=== PATIENT | female | born 1940 | race Caucasian/White ===

== ENCOUNTER → 2016-03-12 | Outpatient (CLI) | payer OTHER ==
[~2016-03-12] MED LIST: ALLO100T PO; ASCA500 PO; ASPI81TA28 PO; CEPH500C PO; CHOL1000 PO; DTRSR/2 PO; GLC/500 PO; HYDR25TA4 PO; OMEG10007 PO; SIMV40TA2 PO
[2016-03-12 12:55] LABS: ALT/SGPT 28 U/L (12-78); AST/SGOT 28 U/L (15-37); BLOOD UREA NITROGEN 17 mg/dl (7-18); BUN/CREATININE RATIO 18.2 (10-20); CALCIUM 9.1 mg/dl (8.5-10.1); CARBON DIOXIDE 29 mmol/L (21-32); CHLORIDE 104 mmol/L (98-107); CREATININE 0.95 mg/dl (0.60-1.20); GLUCOSE 112 mg/dl (70-99); POTASSIUM 3.9 mmol/L (3.5-5.1); SODIUM 142 mmol/L (136-145)
[2016-03-12 12:58] LABS: ALB/GLOB RATIO 1.4 (0.9-2); ALKALINE PHOSPHATASE 57 U/L (45-117)
[2016-03-12 13:00] LABS: CHOLESTEROL/HDL RATIO 3.9; THYROID STIMULATING HORMONE 0.451 uIu/ml (0.300-4.500)
[2016-03-12 13:08] LABS: ESTIMATED AVERAGE GLUCOSE 117 mg/dl; HA1C FLAG Normal (Normal)
== END | disposition home or self-care (01) ==
LOC: C.LABPVFM 03-11 11:04
PROVIDERS: ATTEND Family Medicine
DX: Z00.00 Encounter for general adult medical examination without abnormal findings (principal); E11.9 Type 2 diabetes mellitus without complications; I10 Essential (primary) hypertension; E78.5 Hyperlipidemia, unspecified

== ENCOUNTER → 2016-04-30 | Outpatient (CLI) | payer OTHER | END | disposition home or self-care (01) | LOC: C.LABPVFM 14:10 | PROVIDERS: ATTEND Family Medicine | DX: N39.46 Mixed incontinence (principal); R50.9 Fever, unspecified ==

== ENCOUNTER 2016-05-04 14:14 | Emergency (ER) | payer OTHER ==
[2016-05-04 14:17] VITALS: Ht 151.1 cm
[2016-05-04] MEDS ORDERED: ASPI81TA28 PO (15:05)
[2016-05-04] MEDS ORDERED: DTRSR/2 PO (15:05)
[2016-05-04] MEDS ORDERED: HYDR25TA4 PO (15:05)
[2016-05-04] MEDS ORDERED: OMEG10007 PO (15:05)
[2016-05-04] MEDS ORDERED: SIMV40TA2 PO (15:05)
[2016-05-04] MEDS ORDERED: ALLO100T PO (15:05)
[2016-05-04] MEDS ORDERED: GLC/500 PO ×2 (15:05)
[2016-05-04] MEDS ORDERED: ASCA500 PO (15:05)
[2016-05-04] MEDS ORDERED: CHOL1000 PO (15:05)
[2016-05-04 15:20] VITALS: O2SAT 97
[2016-05-04 15:24] LABS: BASO % 0.4 %; BASO ABS # 0.03 K/uL (0-0.2); EOS % 1.2 %; HEMATOCRIT 33.6 % (37-47); IG% 0.4 %; LYMPH % 22.1 %; LYMPH ABS # 1.88 K/uL (1.2-3.4); MEAN CELL VOLUME 113.9 fL (80-100); MEAN CORPUSCULAR HEMOGLOBIN 40.7 pg (25-34); MEAN CORPUSCULAR HGB CONC 35.7 g/dl (32-36); MEAN PLATELET VOLUME 9.8 fL (7.4-10.4); MONO % 6.2 %; NEUT % 69.7 %; PLATELET COUNT 209 K/uL (130-400); RED BLOOD COUNT 2.95 M/uL (4.2-5.4); WHITE BLOOD COUNT 8.52 K/uL (4.8-10.8)
--- NOTE | 2016-05-04 15:32 | EMERGENCY ROOM VISIT NOTE ---
History First contact with patient: 14:25 Chief Complaint: DIZZY Stated Complaint: DIZZY/FALLS Nursing Triage Summary: Pt states she felt very dizzy this morning, "now I don't feel real stable. UA at Dr, "no infection but it was contaminated". Pt has has had two fall recently. Last one Tuesday night she got up to go to bathroom and lost her balance and fell into a chair. Pt c/o left shoulder pain from fall. Bruising. History of Present Illness The patient is a 76 year old female who presents to the Emergency Room with complaints of an episode of dizziness which occurred this morning. The patient reports that she has had a few falls recently. She reports that 5 days ago, she lost her balance and fell into a chair. The next day, she again lost her balance and fell while going to the bathroom. She does report some bruising in the left ribs secondary to the first fall. Her reports that he feels she is "out of it." He reports that she has been slightly confused at times. The patient was seen by her primary care provider 4 days ago due to these symptoms. They performed a urinalysis and culture and she was told that this was negative. The patient states that she felt okay over the past 3 days, but this morning she had an episode of dizziness. She reports that she was standing in the kitchen cooking when she developed a sensation of the room spinning. Her symptoms lasted approximately 10-15 minutes, and resolved when she sat down and rested. Patient states that she feels much better now, but is afraid that she will be dizzy again. She has a history of diabetes and states that her blood sugar has been well controlled. She denies any associated chest pain, shortness of breath, neck pain, headaches, recent illness, fevers/chills, nausea or vomiting. She denies any numbness or weakness of her extremities, facial drooping, blurred vision or slurred speech. The patient denies any previous episodes of dizziness. Review of Systems A complete 10-point Review of Systems was discussed with the patient, with pertinent positives and negatives listed in the History of Present Illness. All remaining Review of Systems questions can be considered negative unless otherwise specified. Social History Smoking Status: Never Smoker Current/Historical Medications Scheduled Allopurinol (Zyloprim), 100 MG PO QAM Ascorbic Acid (Vitamin C), 500 MG PO DAILY Aspirin (Aspirin Ec), 81 MG PO DAILY Cephalexin Monohydrate (Keflex), 500 MG PO BID Cholecalciferol (Vitamin D3), 1,000 TAB PO DAILY Fish Oil ([place]-3), 1 CAP PO DAILY Hydrochlorothiazide (Hctz), 25 MG PO QAM Metformin Hcl (Glucophage), 1,000 MG PO QAM Metformin Hcl (Glucophage), 500 MG PO QPM Simvastatin (Zocor), 40 MG PO QPM Tolterodine Tartrate (Detrol LA), 2 MG PO QAM Allergies Coded Allergies: No Known Allergies (Unverified , 05/04/16) Physical Exam Vital Signs Date Time Temp Pulse Resp B/P Pulse Ox O2 Delivery O2 Flow Rate FiO2 05/04/16 17:16 36.6 69 18 148/57 97 05/04/16 17:15 69 18 148/57 97 Room Air 05/04/16 15:23 64 155/59 66 143/72 70 151/76 05/04/16 15:20 65 20 155/59 05/04/16 15:20 97 Room Air 05/04/16 14:17 36.6 93 17 133/62 96 Room Air Physical Exam VITALS: Vitals are noted on the nurse's note and reviewed by myself. Vital signs stable. GENERAL: This is a 76-year-old female, in no acute distress, nondiaphoretic, well-developed well-nourished. SKIN: The skin was without rashes. Capillary reflex less than 2 seconds. There is mild ecchymosis of the left lateral fifth and sixth ribs. HEAD: Normocephalic atraumatic. EARS: External auditory canals clear, tympanic membranes pearly isbell without erythema or effusion bilaterally. EYES: Pupils equal round and reactive to light and accommodation. Conjunctivae without injection, sclerae without icterus. Extraocular movements intact. NOSE: Patent, turbinates without inflammation or discharge. MOUTH: Mucous membranes moist. Tonsils are not enlarged. Pharynx without erythema or exudate. Tongue does not deviate. NECK: Supple without nuchal rigidity. No lymphadenopathy. Cervical spine is nontender. HEART: Regular rate and rhythm without murmurs gallops or rubs. LUNGS: Clear to auscultation bilaterally without wheezes, rales or rhonchi. No retractions or accessory muscle use. ABDOMEN: Positive bowel sounds x 4. Soft, nontender. MUSCULOSKELETAL: There is tenderness to palpation of the left lateral and anterior fifth and sixth ribs. Full range of motion in all extremities. Strength 5/5 throughout. NEURO: Patient was alert and oriented to person place and time. Normal sensation to light and sharp touch. Deep tendon reflexes 2+ throughout. No focal neurological deficits. Normal Mini-Mental status exam. Normal gait. Normal finger to nose testing. Normal rapid alternating movements. Negative Romberg and pronator drift. Medical Decision & Procedures ER Provider Diagnostic Interpretation: CT SCAN OF THE BRAIN WITHOUT IV CONTRAST IMPRESSION: There is no hemorrhage, mass effect, or evidence of acute territorial ischemia by CT criteria. AP CHEST WITH LEFT-SIDED RIB SERIES IMPRESSION: 1. Cardiac enlargement with no acute cardiopulmonary abnormality. 2. Suspected an acute nondistracted left anterior sixth rib fracture. Correlate for point tenderness at this site. Laboratory Results 05/04/16 15:10 Red Blood Count 2.95, Mean Corpuscular Volume 113.9, Mean Corpuscular Hemoglobin 40.7, Mean Corpuscular Hemoglobin Concent 35.7, Mean Platelet Volume 9.8, Neutrophils (%) (Auto) 69.7, Lymphocytes (%) (Auto) 22.1, Monocytes (%) ( Auto) 6.2, Eosinophils (%) (Auto) 1.2, Basophils (%) (Auto) 0.4, Neutrophils # ( Auto) 5.95, Lymphocytes # (Auto) 1.88, Monocytes # (Auto) 0.53, Eosinophils # ( Auto) 0.10, Basophils # (Auto) 0.03 05/04/16 15:10 Test 05/04/16 15:10 05/04/16 16:15 White Blood Count 8.52 K/uL (4.8-10.8) Red Blood Count 2.95 M/uL (4.2-5.4) Hemoglobin 12.0 g/dL (12.0-16.0) Hematocrit 33.6 % (37-47) Mean Corpuscular Volume 113.9 fL (80-100) Mean Corpuscular Hemoglobin 40.7 pg (25-34) Mean Corpuscular Hemoglobin Concent 35.7 g/dl (32-36) Platelet Count 209 K/uL (130-400) Mean Platelet Volume 9.8 fL (7.4-10.4) Neutrophils (%) (Auto) 69.7 % Lymphocytes (%) (Auto) 22.1 % Monocytes (%) (Auto) 6.2 % Eosinophils (%) (Auto) 1.2 % Basophils (%) (Auto) 0.4 % Neutrophils # (Auto) 5.95 K/uL (1.4-6.5) Lymphocytes # (Auto) 1.88 K/uL (1.2-3.4) Monocytes # (Auto) 0.53 K/uL (0.11-0.59) Eosinophils # (Auto) 0.10 K/uL (0-0.5) Basophils # (Auto) 0.03 K/uL (0-0.2) RDW Standard Deviation 58.4 fL (36.4-46.3) RDW Coefficient of Variation 14.1 % (11.5-14.5) Immature Granulocyte % (Auto) 0.4 % Immature Granulocyte # (Auto) 0.03 K/uL (0.00-0.02) Macrocytosis PRESENT Ovalocytes 1+ Anion Gap 10.0 mmol/L (3-11) Estimated GFR () 51.2 Estimated GFR (Non- 44.2 BUN/Creatinine Ratio 23.7 (10-20) Calcium Level 9.6 mg/dl (8.5-10.1) Magnesium Level 1.8 mg/dl (1.8-2.4) Total Bilirubin 0.7 mg/dl (0.2-1) Aspartate Amino Transf (AST/SGOT) 30 U/L (15-37) Alanine Aminotransferase (ALT/SGPT) 27 U/L (12-78) Alkaline Phosphatase 68 U/L (45-117) Troponin I < 0.015 ng/ml (0-0.045) Total Protein 7.1 gm/dl (6.4-8.2) Albumin 4.1 gm/dl (3.4-5.0) Globulin 3.0 gm/dl (2.5-4.0) Albumin/Globulin Ratio 1.4 (0.9-2) Thyroid Stimulating Hormone (TSH) 0.276 uIu/ml (0.300-4.500) Urine Color DK YELLOW Urine Appearance CLOUDY (CLEAR) Urine pH 5.0 (4.5-7.5) Urine Specific [place] 1.025 (1.000-1.030) Urine Protein NEG (NEG) Urine Glucose (UA) NEG (NEG) Urine Ketones TRACE (NEG) Urine Occult Blood NEG (NEG) Urine Nitrite POS (NEG) Urine Bilirubin NEG (NEG) Urine Urobilinogen NEG (NEG) Urine Leukocyte Esterase MODERATE (NEG) Urine WBC (Auto) >30 /hpf (0-5) Urine RBC (Auto) 0-4 /hpf (0-4) Urine Hyaline Casts (Auto) 5-10 /lpf (0-5) Urine Epithelial Cells (Auto) 5-10 /lpf (0-5) Urine Bacteria (Auto) 4+ (NEG) ECG Indication: other Rate (beats per minute): 62 Rhythm: normal sinus Findings: LBBB, no acute ischemic change Comparison ECG Date: LBBB now present; compared to EKG 04/20/1995 Medical Decision Differential diagnosis includes vertigo, CVA, TIA, urinary tract infection, metabolic abnormality, arrhythmia, ACS, among others. The patient was evaluated as above. Labs were drawn and IV access was obtained. Imaging studies were performed and read by radiology as above. The patient was reassessed multiple times during their stay in the emergency department and remained in stable condition. The patient is a 76-year-old female who presents today complaining of dizziness. I did obtain records from the patient's previous visit with her PCP. 4 days ago, patient had a urinalysis which appeared to be contaminated. Urine culture was negative. Labs today revealed no leukocytosis. There is a mild anemia. There are no concerning electrolyte abnormalities. Glucose is elevated at 131 consistent with patient's history of type [address] scan of the head was unremarkable. Chest x-ray was unremarkable except for a nondisplaced left rib fracture secondary to the patient's fall. The patient has a normal neurological examination. There is no evidence of central vertigo. The patient's urinalysis was suggestive of infection, with the presence of nitrites, leukocyte esterase and 4+ bacteria. The patient will be placed on Keflex pending the urine culture results at the recommendation of the ED clinical pharmacist. She was instructed to follow-up closely with her primary care provider and return here for any new/concerning symptoms or worsening of her current condition. Based on the patient's presentation, lab results, and imaging studies, I feel the patient is stable for outpatient treatment. The patient was independently evaluated by Dr. Mao, ED attending physician, who agreed with my assessment and treatment plan. Discharge instructions were reviewed with the patient. The patient verbalized understanding of my assessment and treatment plan and was discharged home in good condition. Impression Primary Impression: Urinary tract infection Additional Impressions: Dizziness Rib fracture Departure Information Dispostion Home / Self-Care Condition GOOD Prescriptions Cephalexin Monohydrate (Keflex) 500 Mg Cap 500 MG PO BID for 7 Days, #14 CAP Prov: Gifty Bernabe .BRO 05/04/16 Referrals Chele Wilkinson M.D. (PCP) Patient Instructions My [facility] Additional Instructions You have been treated in the Emergency Department for a Urinary Tract Infection (UTI). You have been prescribed Keflex to be taken twice daily for 7 days. This is an antibiotic. All antibiotics have the potential to cause diarrhea. Stop this medication and contact a medical provider if you were to develop any significant adverse side effects including: wheezing, shortness of breath, passing out, vomiting, or a diffuse rash. Always take antibiotics as directed and COMPLETE the ENTIRE course regardless of the improvement of your symptoms. Drink plenty of water and stay well hydrated. As with any trip to the Emergency Department, you should follow-up with your Primary Care Provider from today's visit. Call them to schedule a follow-up appointment in 2-3 days. Return to the emergency department if your symptoms persist despite treatment plan outlined above or if the following symptoms occur: Worsening dizziness, numbness/weakness, fevers, chills, low back pain, nausea/vomiting, or blood in your urine. Problem Qualifiers Primary Impression: Urinary tract infection Urinary tract infection type: site unspecified Hematuria presence: without hematuria Qualified Codes: N39.0 - Urinary tract infection, site not specified Additional Impressions: Rib fracture Encounter type: initial encounter Rib fracture type: single rib Fracture type: closed Laterality: left Qualified Codes: S22.32XA - Fracture of one rib, left side, initial encounter for closed fracture
[2016-05-04 15:40] LABS: ALT/SGPT 27 U/L (12-78); BLOOD UREA NITROGEN 28 mg/dl (7-18); BUN/CREATININE RATIO 23.7 (10-20); CALCIUM 9.6 mg/dl (8.5-10.1); CARBON DIOXIDE 27 mmol/L (21-32); CHLORIDE 104 mmol/L (98-107); GLUCOSE 131 mg/dl (70-99); MAGNESIUM 1.8 mg/dl (1.8-2.4); POTASSIUM 4.2 mmol/L (3.5-5.1); SODIUM 141 mmol/L (136-145)
--- NOTE | 2016-05-04 15:44 | DIAGNOSTIC IMAGING REPORT ---
CT SCAN OF THE BRAIN WITHOUT IV CONTRAST CLINICAL HISTORY: Change in mental status. Dizziness. COMPARISON STUDY: No priors. TECHNIQUE: Unenhanced axial CT scan of the brain is performed from the vertex to the skull base. CT DOSE: 638.56 mGycm FINDINGS: Brain parenchyma: There are age-related involutional changes noting mild subcortical and periventricular microangiopathic change. There is no hemorrhage, mass effect, or evidence of acute territorial ischemia by CT criteria. A chronic lacunar infarct is seen in the left basal ganglia. [place]-white matter is preserved. No extra-axial fluid collection is seen. Ventricles, sulci, cisterns: Prominent secondary to involutional change. Intracranial vasculature: There is atherosclerotic calcification of the cavernous carotid and vertebral arteries. Calvarium: Unremarkable. Sinuses and mastoids: Mild mucosal thickening is seen throughout the ethmoid sinuses. The remaining visualized paranasal sinuses are clear. The mastoid air cells are well pneumatized. Orbits: The bony orbits are grossly intact. There are bilateral ocular lens implants. IMPRESSION: There is no hemorrhage, mass effect, or evidence of acute territorial ischemia by CT criteria. Electronically signed by: Maged Sena M.D. 05/04/2016 3:43 PM Dictated Date/Time: 05/04/2016 3:41 PM
[2016-05-04 15:51] LABS: ALB/GLOB RATIO 1.4 (0.9-2); ALKALINE PHOSPHATASE 68 U/L (45-117); AST/SGOT 30 U/L (15-37); THYROID STIMULATING HORMONE 0.276 uIu/ml (0.300-4.500)
[2016-05-04 15:59] LABS: COMPLETE YES; OVALOCYTES 1+
--- NOTE | 2016-05-04 16:02 | DIAGNOSTIC IMAGING REPORT ---
AP CHEST WITH LEFT-SIDED RIB SERIES CLINICAL HISTORY: Fall with left chest wall pain. FINDINGS: An AP upright chest radiograph with 4 additional views from a left-sided rib series are obtained. No prior studies are available for comparison at the time of dictation. The AP view is degraded by patient rotation. The heart is mildly enlarged and there is atherosclerotic calcification of the thoracic aorta. The pulmonary vasculature is noncongested. Chronic appearing interstitial thickening is noted. Atelectasis is seen at the left lung base. There is no airspace consolidation typical for pneumonia, large pleural effusion, or pneumothorax. The skeletal structures are osteopenic. An acute nondistracted left anterior sixth rib fracture is suspected. No additional fracture is clearly seen on the rib series. The remainder of the bony thorax is grossly intact. Calcific tendinopathy is present in both shoulders. Degenerative change is noted throughout the thoracic spine. IMPRESSION: 1. Cardiac enlargement with no acute cardiopulmonary abnormality. 2. Suspected an acute nondistracted left anterior sixth rib fracture. Correlate for point tenderness at this site. Electronically signed by: Maged Sena M.D. 05/04/2016 4:00 PM Dictated Date/Time: 05/04/2016 3:57 PM
[2016-05-04 16:33] LABS: URINE APPEARANCE CLOUDY (CLEAR); URINE BILIRUBIN NEG (NEG); URINE COLOR DK YELLOW; URINE NITRITE POS (NEG); URINE SPECIFIC GRAVITY 1.025 (1.000-1.030); UROBILINOGEN NEG (NEG); ZZUR CULT IF INDIC CLEAN CATCH YES
[2016-05-04 16:44] LABS: MANUAL MICROSCOPIC REQUIRED? NO; REVIEW REQ? YES
[2016-05-04] MEDS ORDERED: CEPH500C PO (17:01)
[2016-05-04 17:16] VITALS: BP 148/57; PULSE 69; TEMP 36.6; O2SAT 97
== END 2016-05-04 17:19 | disposition home or self-care (01) ==
LOC: C.EDB 14:17
DX: N39.0 Urinary tract infection, site not specified (principal); S22.32XA Fracture of one rib, left side, initial encounter for closed fracture; R42 Dizziness and giddiness; W19.XXXA Unspecified fall, initial encounter; Z79.82 Long term (current) use of aspirin

== ENCOUNTER → 2016-07-16 | Outpatient (CLI) | payer OTHER ==
[~2016-07-16] MED LIST changes: -CEPH500C PO
--- NOTE | 2016-07-19 13:03 | MAMMOGRAPHY REPORT ---
BILATERAL DIGITAL SCREENING MAMMOGRAM WITH CAD: 07/16/2016 CLINICAL HISTORY: Routine screening. Patient has no complaints. TECHNIQUE: Current study was also evaluated with a Computer Aided Detection (CAD) system. Bilatera l CC and MLO views were obtained. COMPARISON: Comparison is made to exams dated: 07/14/2015 mammogram, 07/11/2014 mammogram, 06/26/2013 mammogram, 06/19/2012 mammogram, 06/17/2011 mammogram, and 06/15/2010 mammogram - [facility]. BREAST COMPOSITION: The tissue of both breasts is heterogeneously dense, which may obscure small ma sses. FINDINGS: No suspicious masses, calcifications, or areas of architectural distortion are noted in e ither breast. There has been no significant interval change compared to prior exams. Bilateral regine gn-appearing calcifications are again noted. IMPRESSION: ACR BI-RADS CATEGORY 2: BENIGN There is no mammographic evidence of malignancy. A 1 year screening mammogram is recommended. The p atient will receive written notification of the results. Approximately 10% of breast cancers are not detected with mammography. A negative mammographic repor t should not delay biopsy if a clinically suggestive mass is present. Xena Salvador M.D. ah/:07/16/2016 16:31:00 Vice President Education: Savana FRAGA(R)(M), [facility] letter sent: Normal 1/2 BI-RADS Code: ACR BI-RADS Category 2: Benign
== END | disposition home or self-care (01) ==
LOC: C.MAMM 13:51
PROVIDERS: ATTEND Family Medicine
DX: Z12.31 Encounter for screening mammogram for malignant neoplasm of breast (principal)

== ENCOUNTER → 2016-09-06 | Outpatient (CLI) | payer OTHER ==
[2016-09-06 13:21] LABS: ALT/SGPT 22 U/L (12-78); BLOOD UREA NITROGEN 24 mg/dl (7-18); BUN/CREATININE RATIO 21.5 (10-20); CALCIUM 9.6 mg/dl (8.5-10.1); CARBON DIOXIDE 29 mmol/L (21-32); CHLORIDE 104 mmol/L (98-107); CHOLESTEROL 143 mg/dl (0-200); GLUCOSE 100 mg/dl (70-99); POTASSIUM 3.9 mmol/L (3.5-5.1); SODIUM 141 mmol/L (136-145); TRIGLYCERIDES 193 mg/dl (0-150); VERY LOW DENSITY LIPOPROT CALC 39 mg/dl
[2016-09-06 13:31] LABS: ALB/GLOB RATIO 1.3 (0.9-2); ALKALINE PHOSPHATASE 59 U/L (45-117); AST/SGOT 20 U/L (15-37); CHOLESTEROL/HDL RATIO 3.9; HDL CHOLESTEROL 37 mg/dl; LDL CHOLESTEROL CALCULATED 67 mg/dl; THYROID STIMULATING HORMONE 0.052 uIu/ml (0.300-4.500)
== END | disposition home or self-care (01) ==
LOC: C.LABPVFM 09:09
PROVIDERS: ATTEND Family Medicine
DX: E03.9 Hypothyroidism, unspecified (principal); E11.9 Type 2 diabetes mellitus without complications; I10 Essential (primary) hypertension; E78.5 Hyperlipidemia, unspecified

== ENCOUNTER → 2017-03-09 | Outpatient (CLI) | payer OTHER | END | disposition home or self-care (01) | LOC: C.LABPVFM 09:21 | PROVIDERS: ATTEND Family Medicine | DX: E03.9 Hypothyroidism, unspecified (principal) ==

== ENCOUNTER → 2017-04-08 | Outpatient (CLI) | payer OTHER | END | disposition home or self-care (01) | LOC: C.LABPVFM 09:27 | PROVIDERS: ATTEND Family Medicine | DX: R26.89 Other abnormalities of gait and mobility (principal); R25.1 Tremor, unspecified ==

== ENCOUNTER → 2017-07-11 | Outpatient (CLI) | payer OTHER ==
[2017-07-11 13:06] LABS: ALBUMIN 3.7 gm/dl (3.4-5.0); ALT/SGPT 31 U/L (12-78); AST/SGOT 27 U/L (15-37); BLOOD UREA NITROGEN 18 mg/dl (7-18); CARBON DIOXIDE 29 mmol/L (21-32); CREATININE 1.15 mg/dl (0.60-1.20); GLUCOSE 112 mg/dl (70-99); POTASSIUM 4.1 mmol/L (3.5-5.1); SODIUM 139 mmol/L (136-145); TOTAL PROTEIN 7.1 gm/dl (6.4-8.2)
[2017-07-11 13:17] LABS: ALKALINE PHOSPHATASE 73 U/L (45-117); CHOLESTEROL 176 mg/dl (0-200); LDL CHOLESTEROL CALCULATED 83 mg/dl
== END | disposition home or self-care (01) ==
LOC: C.LABPVFM 08:07
PROVIDERS: ATTEND Family Medicine
DX: E03.9 Hypothyroidism, unspecified (principal); R41.0 Disorientation, unspecified; R26.89 Other abnormalities of gait and mobility; R94.6 Abnormal results of thyroid function studies

== ENCOUNTER → 2017-10-17 | Outpatient (CLI) | payer OTHER ==
[2017-10-17 13:26] LABS: BLOOD UREA NITROGEN 19 mg/dl (7-18); CALCIUM 8.9 mg/dl (8.5-10.1); CARBON DIOXIDE 30 mmol/L (21-32); CREATININE 1.25 mg/dl (0.60-1.20); GLUCOSE 118 mg/dl (70-99); POTASSIUM 3.5 mmol/L (3.5-5.1); SODIUM 139 mmol/L (136-145)
[2017-10-17 13:27] LABS: HEMOGLOBIN A1C 6.4 % (4.5-5.6)
== END | disposition home or self-care (01) ==
LOC: C.LABPVFM 09:36
PROVIDERS: ATTEND Physician Assistant
DX: E03.9 Hypothyroidism, unspecified (principal); E11.9 Type 2 diabetes mellitus without complications

== ENCOUNTER → 2017-10-18 | Outpatient (CLI) | payer OTHER ==
[2017-10-18 18:15] LABS: CREATININE RANDOM URINE 87.2 mg/dl
== END | disposition home or self-care (01) ==
LOC: C.LABPVFM 16:22
PROVIDERS: ATTEND Physician Assistant
DX: E03.9 Hypothyroidism, unspecified (principal); E11.9 Type 2 diabetes mellitus without complications